=== PATIENT | female | born 1985 | race Caucasian/White ===

== ENCOUNTER → 2025-06-13 | Outpatient (CLI) | payer OTHER | LOC: LAB 11:53 → LAB SHORT 11:53 | PROVIDERS: Obstetrics & Gynecology | DX: Z01.411 Encounter for gynecological examination (general) (routine) with abnormal findings (principal) | CPT/HCPCS: 87624; G0123; G0145 ==

== ENCOUNTER 2025-08-08 09:05 | Day surgery (SDC) | payer OTHER ==
[~2025-08-08] VITALS: Ht 172.7 cm; Wt 119.7 kg
[~2025-08-08 09:05] MED LIST: ADRENAL OPTIMI1 EACH PO; CeFAZolin Sodium 3,000 MG in NS 100 ML IV SCH; FISH OIL 1,0001 EA10 PO; METHYLFOLATE1 EACH PO; Milk Thistle175 M1 PO; PRENATAL TABLE1 EAC2 PO; PROBIOTIC1 EA14 PO; TURMERIC500 M2 PO; VITAMIN D5000 UNIT PO
[2025-08-08 09:34] VITALS: BP 131/71
--- NOTE | 2025-08-08 10:09 | NUR ---
Ambulatory in Day SurgeryPre-Op teaching done. Pt verbalizes understanding. Patient confirms NPO status and agrees with scheduled surgery. History, Chart, Medications and Allergies reviewed before start of procedure. Patient reports completing Chlorhexadine shower X2 prior to admission to hospital.Patient States Post-Procedure ride home has been arranged.
[2025-08-08] MEDS ORDERED: Bupivacaine 0.5% HCl 5 MG/ML 30MLVIAL ONE (10:22)
--- NOTE | 2025-08-08 10:30 | NUR ---
DR. MANN AT BEDSIDE. CANCELLING CASE D/T PT'S RIGHT EYE BLOOD CLOT. SEE MD NOTES
--- NOTE | 2025-08-08 10:45 | NUR ---
1040: PT D/C TO HOME. WILL F/U W/'S OFFICE FOR FURTHER INSTRUCTIONS
== END 2025-08-08 10:40 | disposition home or self-care (01) ==
LOC: ORSCMMR 09:05 → ORD 10:30 → ORSCMMR 10:30
DX: N80.8 Other endometriosis (principal); Z53.9 Procedure and treatment not carried out, unspecified reason
CPT/HCPCS: J0690; J7120